=== PATIENT | female | born 1925 | race Caucasian/White ===

== ENCOUNTER 2017-04-10 17:19 | Emergency (ER) | payer MEDICARE, OTHER ==
[2017-04-10] MEDS ORDERED: LIDOCAINE 1% INJ-PF (10 MG/ML) 30 ML SDV INJ ONE (18:18)
[2017-04-10] MEDS ORDERED: DIPH/PERTUSS(ACELL)/TETANUS VAC/PF 0.5 ML SYR (>=10YO) IM ONE (18:26)
--- NOTE | 2017-04-10 18:29 | ER Document Report ---
ED Fall - General Chief Complaint: Fall Stated Complaint: LEFT HAND LACERATION Time Seen by Provider: 04/10/17 17:28 Mode of Arrival: Stretcher Information source: Patient TRAVEL OUTSIDE OF THE [place] IN LAST 30 DAYS: No - HPI Patient complains to provider of: trip and fall Occurred: Just prior to arrival Where: Home, Outdoors Context: Tripped Associated symptoms: None Location of injury/pain: Hip, Upper extremity Quality of pain: Achy Severity: Mild Pain Level: 1 Notes: Patient is an 89-year-old female who presents to the emergency room status post trip and fall, states she tripped over a concrete divider, landing in a flower bed, causing injury to her right hip in her left forearm and hand, she denies a head injury or loss of consciousness, unsure when her last tetanus shot was but believes she got it at this in the past - Related data Allergies/Adverse Reactions: Iodinated Contrast Media - Oral and [IV Dye, Iodine Containing] Allergy (Severe , Verified 07/03/14 17:39) Benzodiazepines Allergy (Intermediate, Verified 07/04/14 00:52) Hallucinations Opioids - Morphine Analogues [Opioids-Morphine & Related] Allergy (Intermediate , Verified 07/04/14 00:52) Hallucinations Past Medical History - General Information source: Patient, Relative - Social History Smoking Status: Never Smoker Chew tobacco use (# tins/day): No Frequency of alcohol use: None Drug Abuse: None Family History: Reviewed & Not Pertinent - Past Medical History Cardiac Medical History: Reports: Hx Coronary Artery Disease, Hx Heart Attack, Hx Hypercholesterolemia, Hx Hypertension Pulmonary Medical History: Denies: Hx Tuberculosis GI Medical History: Denies: Hx Gastroesophageal Reflux Disease Musculoskeltal Medical History: Reports Hx Arthritis Psychiatric Medical History: Reports: Hx Depression - Pt cannot tolerate depression meds, reports adequate coping Past Surgical History: Reports: Hx Bowel Surgery, Hx Cardiac Catheterization, Hx Cardiac Surgery - coronary stent, Hx Carotid Endarterectomy, Hx Cholecystectomy, Hx Coronary Stent, Hx Hysterectomy, Hx Vascular Surgery - right carotid endarectomy. Denies: Hx Pacemaker - Immunizations Hx Diphtheria, Pertussis, Tetanus Vaccination: No Hx Pneumococcal Vaccination: 08/05/13 Review of Systems - Review of Systems Constitutional: No symptoms reported EENT: No symptoms reported Cardiovascular: No symptoms reported Respiratory: No symptoms reported Gastrointestinal: No symptoms reported Genitourinary: No symptoms reported Female Genitourinary: No symptoms reported Musculoskeletal: See HPI Skin: See HPI Hematologic/Lymphatic: No symptoms reported Neurological/Psychological: No symptoms reported -: Yes All other systems reviewed and negative Physical Exam - Vital signs Vitals: Temp Pulse Resp BP Pulse Ox 98 F 82 16 185/78 H 98 04/10/17 17:28 04/10/17 17:28 04/10/17 17:28 04/10/17 17:28 04/10/17 17:28 Interpretation: Hypertensive - General General appearance: Appears well, Alert - HEENT Head: Normocephalic, Atraumatic Eyes: Normal Pupils: PERRL - Respiratory Respiratory status: No respiratory distress Chest status: Nontender Breath sounds: Normal Chest palpation: Normal - Cardiovascular Rhythm: Regular Heart sounds: Normal auscultation Murmur: No - Abdominal Inspection: Normal Distension: No distension Bowel sounds: Normal Tenderness: Nontender Organomegaly: No organomegaly - Back Back: Normal, Nontender - Extremities General upper extremity: Normal ROM, Normal temperature General lower extremity: Normal ROM, Normal temperature, Normal weight bearing. No: Dorinda's sign Forearm: Other - Large skin tear on the posterior lateral portion forearm with ecchymosis and hematoma Hand: Laceration - 2 mm skin tear to dorsal surface of left hand over fifth MCP , 1.5 cm V-shaped laceration to palmar surface of left hand over her MCP Hip: Tender - Tenderness to palpate over right lateral hip - Neurological Neuro grossly intact: Yes Cognition: Normal Orientation: AAOx4 [place] Coma Scale Eye Opening: Spontaneous [place] Coma Scale Verbal: Oriented [place] Coma Scale Motor: Obeys Commands [place] Coma Scale Total: 15 Speech: Normal Motor strength normal: LUE, RUE, LLE, RLE Sensory: Normal - Psychological Associated symptoms: Normal affect, Normal mood - Skin Skin Temperature: Warm Skin Moisture: Dry Skin Color: Normal Course - Re-evaluation Re-evalutation: 04/10/17 19:26 Imaging findings discussed with patient and family members at bedside which are unremarkable, wound was repaired using sutures, see procedure note, patient was provided with a tetanus shot and prophylactic antibiotics, she declined any pain medication stating she wasn't really having much pain, she was given wound care instructions as well as instructions for follow-up, patient and family members acknowledge understanding and agreement with this plan - Vital Signs Vital signs: Temp Pulse Resp BP Pulse Ox 98 F 82 16 185/78 H 98 04/10/17 17:28 04/10/17 17:28 04/10/17 17:28 04/10/17 17:28 04/10/17 17:28 - Diagnostic Test Radiology reviewed: Image reviewed, Reports reviewed Procedures - Immobilization Left Hand 5th digit Time completed: 19:28 Pre-Proc Neuro Vasc Exam: Normal Immobilizer type: Finger splint (Static) Performed by: PCT Post-Proc Neuro Vasc Exam: Normal Alignment checked and good: Yes - Laceration/Wound Repair Left Hand Time completed: 19:27 Wound length (cm): 1.5 Wound's Depth, Shape: Irregular, Flap, Contused tissue Laceration pre-procedure: Sterile PPE donned, Chloraprep applied, Sterile drapes applied Anesthetic type: 1% Lidocaine Volume Anesthetic (mLs): 5 Wound explored: Clean Irrigated w/ Saline (mLs): 300 Wound Repaired With: Sutures Suture Size/Type: 4:0, Nylon Number of Sutures: 7 Layer Closure?: No Post-procedure wound care: Sterile dressing applied, Splint applied Post-procedure NV exam normal: Yes Complications: No Hands front picture: 1 - 1.5 cm V-shaped laceration Discharge - Discharge Clinical Impression: Laceration of hand Qualifiers: Encounter type: initial encounter Foreign body presence: without foreign body Laterality: left Qualified Code(s): S61.412A - Laceration without foreign body of left hand, initial encounter Skin tear of left forearm without complication Qualifiers: Encounter type: initial encounter Qualified Code(s): S51.812A - Laceration without foreign body of left forearm, initial encounter Contusion, hip Qualifiers: Encounter type: initial encounter Laterality: right Qualified Code(s): S70.01XA - Contusion of right hip, initial encounter Condition: Stable Disposition: HOME, SELF-CARE Instructions: Antibiotic Ointment Protection ([facility]), Laceration Care ([facility]), Prophylactic Antibiotic ([facility]), Soap Cleansing ([facility]), Tetanus Immunization Given ([facility]) Additional Instructions: Follow up with your primary care provider in 2-3 days for wound check. Keep wound clean and covered with antibiotic ointment and a clean dressing. Gently rinse with warm water and soap twice daily. Sutures to be removed in 10-14 days. Return to the emergency room immediately if symptoms worsen or any additional concerns. Prescriptions: Cephalexin Monohydrate [Keflex 500 mg Capsule] 500 mg PO BID #20 capsule
[2017-04-10] MEDS ORDERED: CEPHALEXIN 500 MG CAPSULE PO ONE (19:29)
[2017-04-10 20:07] VITALS: BP 156/71
== END 2017-04-10 20:10 | disposition home or self-care (01) ==
LOC: ER 17:19
PROC: 0HQGXZZ Repair Left Hand Skin, External Approach (ICD-10-PCS; principal; 2017-04-10)
DX: S61.412A Laceration without foreign body of left hand, initial encounter (principal); S51.812A Laceration without foreign body of left forearm, initial encounter; S70.01XA Contusion of right hip, initial encounter; W01.0XXA Fall on same level from slipping, tripping and stumbling without subsequent striking against object, initial encounter; Y92.007 Garden or yard of unspecified non-institutional (private) residence as the place of occurrence of the external cause; I25.10 Atherosclerotic heart disease of native coronary artery without angina pectoris; I25.2 Old myocardial infarction; I10 Essential (primary) hypertension; Z98.61 Coronary angioplasty status; Z91.041 Radiographic dye allergy status; Z88.8 Allergy status to other drugs, medicaments and biological substances; Z88.5 Allergy status to narcotic agent; Z23 Encounter for immunization
CPT/HCPCS: 99284; 90471; 72170; 90715; 12001; A9270; J3490

== ENCOUNTER 2017-07-05 09:30 | Emergency (ER) | payer MEDICARE, OTHER ==
[2017-07-05] MEDS ORDERED: ACETAMINOPHEN 325 MG TABLET PO ONE (09:38)
[2017-07-05 09:39] VITALS: BP 148/55
--- NOTE | 2017-07-05 09:45 | ER Document Report ---
ED Medical Screen (RME) - General Chief Complaint: Fall Stated Complaint: FALL PAIN IN WRIST Time Seen by Provider: 07/05/17 09:38 Mode of Arrival: Wheelchair Information source: Patient, Relative Notes: 89-year-old female presents with wrist pain after fall. Patient admits to left rib pain as well with pain on deep inspiration. Patient denies any other injuries has skin tears Patient is on losartan atorvastatin metoprolol and baby aspirin daily I have greeted and performed a rapid initial assessment of this patient. A comprehensive ED assessment and evaluation of the patient, analysis of test results and completion of the medical decision making process will be conducted by additional ED providers. PHYSICAL EXAMINATION: GENERAL: Well-appearing, well-nourished and in no acute distress. HEAD: Atraumatic, normocephalic. EYES: Pupils equal round extraocular movements intact, conjunctiva are normal. ENT: Nares patent NECK: Normal range of motion LUNGS: No respiratory distress Musculoskeletal: rib pain NEUROLOGICAL: Normal speech, normal gait. PSYCH: Normal mood, normal affect. SKIN: Skin tears bilateral wrists TRAVEL OUTSIDE OF THE [place] IN LAST 30 DAYS: No - Related Data Allergies/Adverse Reactions: Iodinated Contrast- Oral and IV Dye [IV Dye, Iodine Containing] Allergy (Severe , Verified 07/05/17 09:43) Benzodiazepines Allergy (Intermediate, Verified 07/05/17 09:43) Hallucinations Opioids - Morphine Analogues [Opioids-Morphine & Related] Allergy (Intermediate , Verified 07/05/17 09:43) Hallucinations Past Medical History - Past Medical History Cardiac Medical History: Reports: Hx Coronary Artery Disease, Hx Heart Attack, Hx Hypercholesterolemia, Hx Hypertension Pulmonary Medical History: Denies: Hx Tuberculosis Renal/ Medical History: Denies: Hx Peritoneal Dialysis GI Medical History: Denies: Hx Gastroesophageal Reflux Disease Musculoskeltal Medical History: Reports Hx Arthritis Psychiatric Medical History: Reports: Hx Depression - Pt cannot tolerate depression meds, reports adequate coping Past Surgical History: Reports: Hx Bowel Surgery, Hx Cardiac Catheterization, Hx Cardiac Surgery - coronary stent, Hx Carotid Endarterectomy, Hx Cholecystectomy, Hx Coronary Stent, Hx Hysterectomy, Hx Vascular Surgery - right carotid endarectomy. Denies: Hx Pacemaker - Immunizations Hx Diphtheria, Pertussis, Tetanus Vaccination: No Physical Exam - Vital signs Vitals: Temp Pulse Resp BP Pulse Ox 97.9 F 80 20 148/55 H 97 07/05/17 09:39 07/05/17 09:39 07/05/17 09:39 07/05/17 09:39 07/05/17 09:39 Course - Vital Signs Vital signs: Temp Pulse Resp BP Pulse Ox 97.9 F 80 20 148/55 H 97 07/05/17 09:39 07/05/17 09:39 07/05/17 09:39 07/05/17 09:39 07/05/17 09:39
--- NOTE | 2017-07-05 10:38 | RADIOLOGY REPORT (SQ) ---
EXAM DESCRIPTION: WRIST BILATERAL 3 VIEWS COMPLETED DATE/TIME: 07/05/2017 10:28 am REASON FOR STUDY: fall COMPARISON: None. NUMBER OF VIEWS: Three views. TECHNIQUE: AP, lateral, and oblique radiographic images acquired of the right and left wrist. LIMITATIONS: None. FINDINGS: MINERALIZATION: Mild osteopenia. BONES: No acute fracture or dislocation. No worrisome bone lesions. Normal alignment. Degenerative changes at the 1st carpometacarpal joint with sclerosis and small osteophytes. SOFT TISSUES: No soft tissue swelling. No foreign body. OTHER: No other significant finding. IMPRESSION: MILD CHRONIC DEGENERATIVE CHANGES. NO ACUTE FINDINGS. TECHNICAL DOCUMENTATION: JOB ID: [id number] [employer]- All Rights Reserved
--- NOTE | 2017-07-05 10:40 | RADIOLOGY REPORT (SQ) ---
EXAM DESCRIPTION: RIBS LEFT W/PA CHEST COMPLETED DATE/TIME: 07/05/2017 10:28 am REASON FOR STUDY: fall COMPARISON: 11/06/2014. TECHNIQUE: Frontal view of the chest and additional views of the left ribs acquired. NUMBER OF VIEWS: Three view. LIMITATIONS: None. FINDINGS: FRONTAL CXR: Chronic cortical scarring and pleural thickening in the apices. No pneumotho rax. No pleural effusion. No atelectasis or infiltrates. RIBS: No displaced rib fractures. No lytic or blastic bony lesions. OTHER: No other significant finding. IMPRESSION: NO PNEUMOTHORAX. NO DISPLACED RIB FRACTURES. COMMENT: SITE OF TRAUMA/COMPLAINT MARKED/STAMP COMPLETED: YES. TECHNICAL DOCUMENTATION: JOB ID: [id number] [employer]- All Rights Reserved
--- NOTE | 2017-07-05 11:01 | ER Document Report ---
ED Fall - General Chief Complaint: Fall Stated Complaint: FALL PAIN IN WRIST Time Seen by Provider: 07/05/17 09:38 Mode of Arrival: Wheelchair Information source: Patient, Relative TRAVEL OUTSIDE OF THE [place] IN LAST 30 DAYS: No - HPI Occurred: Yesterday - last evening Where: Home Context: Tripped Associated symptoms: denies: Lost consciousness, Became dizzy/fainted Location of injury/pain: Chest, Upper extremity Quality of pain: Achy - Related data Allergies/Adverse Reactions: Iodinated Contrast- Oral and IV Dye [IV Dye, Iodine Containing] Allergy (Severe , Verified 07/05/17 09:43) Benzodiazepines Allergy (Intermediate, Verified 07/05/17 09:43) Hallucinations Opioids - Morphine Analogues [Opioids-Morphine & Related] Allergy (Intermediate , Verified 07/05/17 09:43) Hallucinations Past Medical History - General Information source: Patient, Relative - Social History Smoking Status: Unknown if Ever Smoked Family History: Reviewed & Not Pertinent - Past Medical History Cardiac Medical History: Reports: Hx Coronary Artery Disease, Hx Heart Attack, Hx Hypercholesterolemia, Hx Hypertension Pulmonary Medical History: Denies: Hx Tuberculosis Renal/ Medical History: Denies: Hx Peritoneal Dialysis GI Medical History: Denies: Hx Gastroesophageal Reflux Disease Musculoskeltal Medical History: Reports Hx Arthritis Psychiatric Medical History: Reports: Hx Depression - Pt cannot tolerate depression meds, reports adequate coping Past Surgical History: Reports: Hx Bowel Surgery, Hx Cardiac Catheterization, Hx Cardiac Surgery - coronary stent, Hx Carotid Endarterectomy, Hx Cholecystectomy, Hx Coronary Stent, Hx Hysterectomy, Hx Vascular Surgery - right carotid endarectomy. Denies: Hx Pacemaker - Immunizations Hx Diphtheria, Pertussis, Tetanus Vaccination: No Hx Pneumococcal Vaccination: 08/05/13 Review of Systems - Review of Systems Constitutional: No symptoms reported Respiratory: Hurts to breathe - at the end of inspiration Musculoskeletal: No symptoms reported Skin: Other - skin tears on both wrists -: Yes All other systems reviewed and negative Physical Exam - Vital signs Vitals: Temp Pulse Resp BP Pulse Ox 97.9 F 80 20 148/55 H 97 07/05/17 09:39 07/05/17 09:39 07/05/17 09:39 07/05/17 09:39 07/05/17 09:39 - Notes Notes: PHYSICAL EXAM GENERAL: Alert, interacts well. HEAD: Normocephalic, atraumatic. EYES: Pupils equal, round, and reactive to light. Extraocular movements intact. ENT: Oral mucosa moist, tongue midline. NECK: Full range of motion. Supple. Trachea midline. Chest: Minimally tender on the left lower aspect of her rib cage otherwise no deformity, crepitus LUNGS: Clear to auscultation bilaterally, no wheezes, rales, or rhonchi. No respiratory distress. HEART: Regular rate and rhythm. No murmurs, gallops, or rubs. ABDOMEN: Soft, nondistended, nontender. No guarding, rebound, or rigidity.. Bowel sounds present in all 4 quadrants. EXTREMITIES: Moves all 4 extremities spontaneously. No edema, radial and dorsalis pedis pulses 2/4 bilaterally. No cyanosis. NEUROLOGICAL: Alert and oriented x4. Normal speech. PSYCH: Normal affect, normal mood. SKIN: Warm, dry, normal turgor. No rashes or lesions noted. stage one skin tears on radial aspects of both forearms without tenderness Course - Re-evaluation Re-evalutation: 07/05/17 19:16 Patient is an 89-year-old female who is hemodynamic is stable, no acute distress and afebrile. No evidence of fracture on x-ray for chest and wrist. Bleeding controlled and skin tears dressed. Patient and family given instruction for incentive spirometry and strict return precautions. Otherwise stable for discharge home. - Vital Signs Vital signs: Temp Pulse Resp BP Pulse Ox 97.9 F 80 20 148/55 H 97 07/05/17 09:39 07/05/17 09:39 07/05/17 09:39 07/05/17 09:39 07/05/17 09:39 - Diagnostic Test Radiology reviewed: Image reviewed, Reports reviewed Discharge - Discharge Clinical Impression: Fall Qualifiers: Encounter type: initial encounter Qualified Code(s): W19.XXXA - Unspecified fall, initial encounter Condition: Good Disposition: HOME, SELF-CARE Instructions: Skin Tear ([facility]), Rib Contusion ([facility]) Additional Instructions: How to use the incentive spirometer 1.Sit on the edge of your bed if possible, or sit up as far as you can in bed. 2.Hold the incentive spirometer in an upright position. 3.Place the mouthpiece in your mouth and seal your lips tightly around it. 4.Breathe in slowly and as deeply as possible. Notice the yellow piston rising toward the top of the column. The yellow indicator should reach the blue outlined area. 5.Hold your breath as long as possible. Then exhale slowly and allow the piston to fall to the bottom of the column. 6.Rest for a few seconds and repeat steps one to five at least 10 times every hour. 7.Position the yellow indicator on the left side of the spirometer to show your best effort. Use the indicator as a goal to work toward during each slow deep breath. 8.After each set of 10 deep breaths, cough to be sure your lungs are clear. If you have an incision, support your incision when coughing by placing a pillow firmly against it. 9.Once you are able to get out of bed safely, take frequent walks and practice the cough. Forms: Elevated Blood Pressure Referrals: AYANA MCKINNEY MD [Primary Care Provider] - Follow up in 1 week
== END 2017-07-05 11:33 | disposition home or self-care (01) ==
LOC: ER 09:30
DX: M25.539 Pain in unspecified wrist (principal); W19.XXXA Unspecified fall, initial encounter
CPT/HCPCS: 99283; 71101; 73110; A9270